=== PATIENT | female | born 1975 ===

== ENCOUNTER 2019-01-19 11:23 | Outpatient (CLI) | payer OTHER ==
[~2019-01-19 11:23] MED LIST: FOLIC ACID1 MG PO; OMEGA-31000 MG PO; PRENATAL1 TAB PO
== END 2019-01-19 11:25 | disposition home or self-care (01) ==
LOC: SONOGRAMA 11:23
DX: E07.89 Other specified disorders of thyroid (principal); Z13.89 Encounter for screening for other disorder; R13.19 Other dysphagia; Z13.220 Encounter for screening for lipoid disorders; Z11.3 Encounter for screening for infections with a predominantly sexual mode of transmission; M54.5 Low back pain